=== PATIENT | female | born 1945 | race Hispanic/Latino ===

== ENCOUNTER 2022-07-08 14:34 | Emergency (ER) | payer MEDICARE ==
[~2022-07-08] VITALS: Ht 154.9 cm; Wt 95.1 kg
[2022-07-08] MEDS ORDERED: PREDNISONE20 MG PO (16:55)
[2022-07-08] MEDS ORDERED: PREDNISONE 20 MG TAB PO ONE (17:00)
== END 2022-07-08 17:30 | disposition home or self-care (01) ==
LOC: FSED 14:38
DX: M16.11 Unilateral primary osteoarthritis, right hip (principal); I10 Essential (primary) hypertension; E11.69 Type 2 diabetes mellitus with other specified complication; E03.9 Hypothyroidism, unspecified; E78.5 Hyperlipidemia, unspecified; M47.896 Other spondylosis, lumbar region
CPT/HCPCS: 72100; 73502; 81003; 99283; J7512